=== PATIENT | male | born 1990 ===

== ENCOUNTER 2020-12-17 17:11 | Emergency (ER) | payer SELFPAY ==
[~2020-12-17] VITALS: Wt 94.8 kg
[2020-12-17] MEDS ORDERED: TYLENOL325 M1 PO (18:32)
[2020-12-17] MEDS ORDERED: NAPROXEN250 MG PO (18:32)
[2020-12-17] MEDS ORDERED: SEPTDS PO (18:32)
[2020-12-17] MEDS ORDERED: PERCOCET 5-3251 EACH PO ×3 (19:39→19:49)
[2020-12-17] MEDS ORDERED: BENADRYL ALLERG25 M5 PO (19:50)
== END 2020-12-17 20:05 | disposition home or self-care (01) ==
LOC: ED 17:11
DX: L03.012 Cellulitis of left finger (principal); F17.200 Nicotine dependence, unspecified, uncomplicated